=== PATIENT | female | born 1960 | race Two or more races ===

== ENCOUNTER 2024-09-22 00:31 | Emergency (ER) | payer MEDICAID, OTHER ==
[~2024-09-22] VITALS: Ht 160 cm; Wt 67.8 kg
[2024-09-22 01:23] LABS: Urine Bacteria FEW /hpf (None Seen); Urine Blood Negative /uL (Negative); Urine Clarity Turbid (Clear); Urine Color Light-Orange (Yellow); Urine Mucus FEW (None Seen); Urine Protein, UAD 1+ (Negative); Urine Specific Gravity 1.026 (1.001-1.035); Urine Urobilinogen 3 mg/dL (Negative); Urine WBC 89 /hpf (0 - 5); Urine pH 5.5 (5.0-9.0)
--- NOTE | 2024-09-22 01:32 | DVH ---
EXAM: XY CHEST TWO VIEWS ROUTINE CLINICAL HISTORY: Cough/shortness a breath TECHNIQUE: Frontal and lateral views of the chest WID: COMPARISON: None FINDINGS: Lines and tubes: None Chest: The heart size and pulmonary vasculature is within normal limits. Calcified plaque projects over the aortic arch. No pleural effusion, pneumothorax, or consolidation. The osseous structures are grossly intact. There is s shaped scoliosis of the thoracolumbar spine. Mi ld multilevel thoracic spondylosis. IMPRESSION: No acute cardiopulmonary abnormality.
--- NOTE | 2024-09-22 01:42 | DVH ---
INDICATION: Low back pain COMPARISON: None TECHNIQUE: 2 views of the lumbar spine were obtained. FINDINGS: There is moderate left convexity scoliosis of the lower thoracic and lumbar spine there are 5 non-rib -bearing lumbar type vertebral bodies. The pedicles are intact. Sacroiliac joints are maintained. V isualized hip joints are maintained. There is a mild chronic appearing compression fracture of L5. N o acute appearing compression fracture is identified. There is multilevel degenerative disc disease o f the lumbar spine as well as multilevel facet hypertrophy. Overlying soft tissues intact. Calcified atherosclerosis is seen. Visualized bowel gas is nonobstructed. Lung apices are clear. IMPRESSION: 1. Chronic appearing mild compression fracture of L5 2. No acute appearing fracture 3. Multilevel lumbar spondylosis 4. Moderate left convexity scoliosis of the lower thoracic and lumbar spine.
[2024-09-22] MEDS ORDERED: IBUP-1454 PO (02:20)
[2024-09-22] MEDS ORDERED: BACDST PO (02:20)
[2024-09-22] MEDS ORDERED: ACET500T58 PO (02:20)
--- NOTE | 2024-09-22 02:20 | ED.PDOC ---
General HPI Comments This patient is a pleasant 64-year-old female who arrives the ED today with complaints of left-sided abdominal pain that radiates towards her flank as well as generalized burning chest pain concerns for the past few days. Patient states that the flank pain began a couple of days ago and appears to continue to worsened. Patient states she has had a cough and some burning chest pain for the past week. Patient denies any fever nausea or vomiting. Patient does have a history of scoliosis, but states that her flank pain is unfamiliar when compared to her scoliosis back pain concerns. Patient was hypertensive at arrival. Chief Complaint: Flank Pain Time Seen by MD: 00:34 Reviewed notes: Nurses Notes Allergies: Coded Allergies: No Known Drug Allergy (Verified Allergy, Unknown, 09/22/24) Information Source: Patient Mode of Arrival: Ambulatory Severity: Moderate Timing: Days Duration: Since onset Prehospital treatment: None Onset: Spontaneous Symptoms: None History of: Other (Scoliosis) Location: Abdomen, (L)Flank associated signs and symptoms: Abdominal Pain Past Medical History PAST MEDICAL HISTORY: Denies Past Medical History (Other): History of scoliosis Surgical History: Denies all surgeries [employer]BER INCIDENT RESPONDER History: No Pertinent CY[employer] INCIDENT RESP[employer]DER History Family History Family History: Reviewed,noncontributory to illness, No family hx of Cancer, No family hx of DM, No family hx of Heart luh, No family hx of HTN, No family hx ofKidney luh, No family hx of Liver lhu, No family hx of Lung luh, No family hx of Stroke Social History Smoker: Non-Smoker Alcohol: Denies ETOH Use Drugs: Denies Drug Use Lives In: Home Constitutional: denies: chills, diaphoresis, fatigue, fever, malaise, sweats, weakness, others EENTM: denies: blurred vision, double vision, ear bleeding, ear discharge, ear drainage, ear pain, ear ringing, eye pain, eye redness, hearing loss, mouth pain, mouth swelling, nasal discharge, nose bleeding, nose congestion, nose pain, photophobia, tearing, throat pain, throat swelling, voice changes, others Respiratory: denies: cough, hemoptysis, orthopnea, SOB at rest, shortness of breath, SOB with excertion, stridor, wheezing, others Cardiovascular: reports: chest pain; denies: dizzy spells, diaphoresis, Dyspnea on exertion, edema, irregular heart beat, left arm pain, lightheadedness, palpitations, PND, syncope, others Gastrointestinal: reports: abdominal pain, nausea; denies: abdomen distended, blood streaked bowels, constipated, diarrhea, dysphagia, difficulty swallowing, hematemesis, melena, poor appetite, poor fluid intake, rectal bleeding, rectal pain, vomiting, others Genitourinary: reports: flank pain; denies: abnormal vagina bleeding, burning, dyspareunia, dysuria, frequency, hematuria, incontinence, pain, , vagina discharge, urgency, others Neurological: denies: dizziness, fainting, headache, left sided numbness, left sided weakness, numbness, paresthesia, pre-existing deficit, right sided numbness, right sided weakness, seizure, speech problems, tingling, tremors, weakness, others Musculoskeletal: denies: back pain, gout, joint pain, joint swelling, muscle pain, muscle stiffness, neck pain, others Integumetry: denies: bruises, change in color, change in hair/nails, dryness, laceration, lesions, lumps, rash, wounds, others Allergic/Immunocompromised: denies: Difficulty Healing, Frequent Infections, Hives, Itching, others Hematologic/Lymphatic: denies: anemia, blood clots, easy bleeding, easy bruising, swollen glands, others Endocrine: denies: excessive hunger, excessive sweating, excessive thirst, excessive urination, flushing, intolerance to cold, intolerance to heat, unexplained weight gain, unexplained weight loss, others Psychiatric: denies: anxiety, bipolar disorder, depression, hopeless, panic disorder, schizophrenia, sleepless, suicidal, others Physical Exam General Appearance: Moderate Distress (Patient appears to be in [id number] distress due to her flank pain and chest pain concerns.), Normal HEENT: Normal ENT Inspection, Pharynx Normal, TMs Normal Neck: Full Range of Motion, Non-Tender, Normal, Normal Inspection Respiratory: Chest Non-Tender, Lungs Clear, No Accessory Muscle Use, No Respiratory Distress, Normal Breath Sounds, Other (While auscultation bilateral lung prescott.) Cardiovascular: No Edema, No JVD, No Murmur, No Gallop, Normal Peripheral Pulses, Regular Rate/Rhythm, Other (Unremarkable cardiac evaluation.) Breast Exam: Deferred Gastrointestinal: Other (Patient displays diffuse left-sided flank and CVA pain radiating to the belly. No specific CVA tenderness. No signs of trauma.) Genitalia: Deferred Pelvic: Deferred Rectal: Deferred Extremities: No calf tenderness, Normal capillary refill, Normal inspection, Normal range of motion, Non-tender, No pedal edema Neurologic: Alert, No Motor Deficits, Normal Affect, Normal Mood, No Sensory Deficits Cerebellar Function: Normal Reflexes: Normal Skin: Dry, Normal Color, Warm Lymphatic: No Adenopathy Was a procedure done? Was a procedure done?: No Differential Diagnosis Kidney stone (Female): Other (Kidney stone, pyelonephritis, UTI, pneumonia, upper respiratory infection, degenerative disc disease of the lumbar spine) X-Ray, Labs, Meds, VS Vital Signs Date Time Temp Pulse Resp B/P (MAP) Pulse Ox O2 Delivery O2 Flow Rate FiO2 09/22/24 00:47 98.1 83 18 190/98 (128) 99 Lab Test 09/22/24 01:07 Range/Units Urine Color Light-orange Yellow Urine Clarity Turbid H Clear Urine pH 5.5 5.0-9.0 Urine Specific [place] 1.026 1.001-1.035 Urine Protein 1+ H Negative Urine Ketones Trace Negative Urine Blood Negative Negative /uL Urine Nitrite Negative Negative Urine Bilirubin Negative Negative Urine Urobilinogen 3 H Negative mg/dL Urine Leukocyte Esterase 3+ Negative /uL Urine RBC 9 0 - 4 /hpf Urine WBC 89 0 - 5 /hpf Urine Squamous Epithelial Cells Many <5 /hpf Urine Bacteria Few H None Seen /hpf Urine Mucus Few None Seen Urine Glucose Normal Normal mg/dL X-Ray, Labs, Meds, VS Comment All studies performed the ED were evaluated by me personally. Laboratories studies revealed a market urine white blood cell count which may be indicative of a pyelonephritis. Patient was given her 1st dose of antibiotic and will receive a prescription for antibiotics to be completed as directed. Additionally, patient seems to have a degenerative disc disease of the lumbar sp ine that may or may not be related to her scoliosis. Advised patient to follow up with the primary care provider for continued evaluation as needed. Time of 1ST Reevaluation: :17 Reevaluation 1ST: Improved Consultation: PCP Patient Education/Counseling: Diagnosis, Treatment Family Education/Counseling: Diagnosis, Treatment Departure 1 Departure Time of Disposition: 02:17 Impression: Primary Impression: Pyelonephritis Additional Impression: Degenerative joint disease (DJD) of lumbar spine Disposition: HOME / SELF CARE / HOMELESS Condition: Stable Additional Instructions: Advised patient utilize antibiotics as directed until completion. Patient should follow up with primary care provider for continued conversation is related to her scoliosis and degenerative disc disease of her lumbar spine. e-Prescriptions Ibuprofen (Ibuprofen) 600 Mg Tab 1 TAB PO Q6HP PRN, #20 TAB Prov: ALONSO SRIVASTAVA PAC 09/22/24 Acetaminophen (Acetaminophen) 500 Mg Tab 500 MG PO Q4HP PRN, #30 TAB Prov: ALONSO SRIVASTAVA PAC 09/22/24 Sulfamethoxazole W/Trimethopri (Bactrim Ds Tablet) 1 Tab Tb 1 TAB PO BID for 10 Days, #20 TAB Prov: ALONSO SRIVASTAVA PAC 09/22/24 Discharged With: Self, Friend Critical Care Note Critical Care Time?: No Stability Stability form required: No Heart Score Heart Score: Heart Score Response (Comments) Value History N/A 0 EKG N/A 0 Age N/A 0 Risk Factors N/A 0 Troponin N/A 0 Total 0 ALONSO SRIVASTAVA PAC Sep 22, 2024 02:20
[2024-09-22 02:44] VITALS: BP 162/79; PULSE 64; RESP 18; TEMP 98.7; O2SAT 98
[2024-09-22] MEDS: SULFAMETHOX W/TRIMETH(800/160MG) DS TAB PO ONE (02:51)
[2024-09-22] MEDS: ACETAMINOPHEN 325 MG TAB PO ONE (02:53)
== END 2024-09-22 03:17 | disposition home or self-care (01) ==
LOC: ER 00:31
DX: N12 Tubulo-interstitial nephritis, not specified as acute or chronic (principal); M51.369 Other intervertebral disc degeneration, lumbar region without mention of lumbar back pain or lower extremity pain; I10 Essential (primary) hypertension
CPT/HCPCS: 71046; 72100; 81001